=== PATIENT | female | born 1955 ===

== ENCOUNTER 2017-02-08 06:32 | Day surgery (SDC) | payer MEDICAID ==
[2017-01-27 12:19] VITALS: BMI 31.3
[2017-02-08] MEDS ORDERED: Midazolam 2 MG/2 ML VIAL ONE (07:41)
[2017-02-08] MEDS ORDERED: Oxycodone/Acetaminophen 5/325 mg Tab PO PRN (08:32)
[2017-02-08] MEDS ORDERED: Sodium Chloride 0.45% 1,000 ML IV SCH (08:45)
[2017-02-08] MEDS ORDERED: Oxycodone/Acetaminophen 5/325 mg Tab ONE (08:51)
[2017-02-08] MEDS ORDERED: Oxycodone/Acetaminophen 5/325 mg Tab PO ONE (08:52)
[2017-02-08 09:20] VITALS: RESP 18
[2017-02-08 09:45] VITALS: TEMP 97.6
--- NOTE | 2017-02-08 10:20 | RAD ---
HISTORY: lt lung bx COMPARISON: No prior. FINDINGS: LUNGS: Left apical nodule. PLEURA: No significant pleural effusion identified, no pneumothorax apparent. CARDIOVASCULAR: Normal. OSSEOUS STRUCTURES: No significant abnormalities. VISUALIZED UPPER ABDOMEN: Normal. OTHER FINDINGS: None. IMPRESSION: No evidence of post biopsy pneumothorax
[2017-02-08 11:31] VITALS: BP 134/84; PULSE 69; O2SAT 96
--- NOTE | 2017-02-08 17:16 | CT ---
PROCEDURE: CT guided left apical lung biopsy. HISTORY: History breast CA. 12 mm left apical nodule. Positive PET scan. Evaluate for malignancy. PHYSICIAN(S): Ted Nagy MD. TECHNIQUE: The relative risks and indications of the procedure were explained to the patient and consent obtained. The patient was placed supine on the CT scanner and preliminary images through the lung apices obtained. Conscious sedation and monitoring were provided throughout the procedure by a nurse. Approach to the left apical nodule was somewhat limited due to overlying bones.. A left anterior approach was selected and the area prepped and draped in the usual sterile fashion. 1% Xylocaine was used to anesthetize the skin and soft tissues. A 19 gauge guiding needle was advanced into the 12 mm left apical nodule. Its position was confirmed with CT. Using coaxial technique, multiple core biopsies were obtained. The postprocedure images show no evidence of large pneumothorax or significant hemorrhage.. IMPRESSION: 1. CT-guided left apical lung biopsy as described above.
== END 2017-02-08 12:15 | disposition home or self-care (01) ==
LOC: SDS 06:32
PROVIDERS: ATTEND Radiology Vascular & Interventional Radiology
DX: C34.92 Malignant neoplasm of unspecified part of left bronchus or lung (principal); Z85.3 Personal history of malignant neoplasm of breast
CPT/HCPCS: 32405; 71010; 77012; 88305; J2250; J2405; J3010; J7030